=== PATIENT | female | born 1950 | race Two or more races ===

== ENCOUNTER 2020-12-19 06:00 | Day surgery (SDC) | payer OTHER ==
[~2020-12-19 06:00] MED LIST: AVALIDE 300-121 EACH PO; FOSAMA PO; LIPITOR40 M1 PO; NORVASC5 MG PO; SYNTHROID100 MCG PO; TOPROL XL50 M1 PO; [UNRECOGNIZED DRUG - OTHER] PO
== END 2020-12-19 10:45 | disposition home or self-care (01) ==
LOC: CIR.AMB 06:00
PROVIDERS: ATTEND Orthopaedic Surgery Hand Surgery
DX: G56.01 Carpal tunnel syndrome, right upper limb (principal); Z20.822 Contact with and (suspected) exposure to COVID-19

== ENCOUNTER 2022-01-17 17:16 | Emergency (ER) | payer OTHER ==
[~2022-01-17] VITALS: Ht 154.9 cm; Wt 59.9 kg
[2022-01-17] MEDS ORDERED: LEVSIN/SL0.125 MG SL (21:40)
[2022-01-17] MEDS ORDERED: PEPCID AC20 MG PO (21:40)
== END 2022-01-17 22:00 | disposition home or self-care (01) ==
LOC: ER 17:16
DX: R19.7 Diarrhea, unspecified (principal); M54.59 Other low back pain; E03.9 Hypothyroidism, unspecified

== ENCOUNTER 2022-01-18 21:08 | Emergency (ER) | payer OTHER ==
[~2022-01-18] VITALS: Ht 154.9 cm; Wt 59.9 kg
[~2022-01-18 21:08] MED LIST changes: +LEVSIN/SL0.125 MG SL; +PEPCID AC20 MG PO
[2022-01-19] MEDS ORDERED: INTESTINEX680 M1 PO (04:21)
== END 2022-01-19 04:26 ==
LOC: ER 21:08
DX: R19.7 Diarrhea, unspecified (principal); I10 Essential (primary) hypertension; E03.9 Hypothyroidism, unspecified